=== PATIENT | male | born 1940 | race African-American/Black ===

== ENCOUNTER 2022-02-05 13:10 | Emergency (ER) | payer MEDICARE, MEDICAID ==
[~2022-02-05] VITALS: Ht 190.5 cm; Wt 82.0 kg
[~2022-02-05 13:10] MED LIST: ASCORBIC ACID 400 MG; ATOR20TA; VALS80TA2
[2022-02-05 13:17] VITALS: BP 155/50
== END 2022-02-05 14:45 | disposition left against medical advice (07) ==
LOC: ER 13:10
DX: R07.89 Other chest pain (principal); I10 Essential (primary) hypertension
CPT/HCPCS: 93005; 99283

== ENCOUNTER 2022-12-07 17:46 | Emergency (ER) | payer MEDICARE, MEDICAID ==
[~2022-12-07] VITALS: Ht 190.5 cm; Wt 82.0 kg
[2022-12-07] MEDS ORDERED: LIDOCAINE HCL 1% 20ML VIAL (Pyxis) INJ INFIL ONE (18:30)
[2022-12-07 19:04] VITALS: BP 148/84
== END 2022-12-07 19:07 | disposition home or self-care (01) ==
LOC: ER 17:46
DX: S01.112A Laceration without foreign body of left eyelid and periocular area, initial encounter (principal); W18.30XA Fall on same level, unspecified, initial encounter; Y93.89 Activity, other specified; Y92.89 Other specified places as the place of occurrence of the external cause; Y99.8 Other external cause status
CPT/HCPCS: 12011; 99282

== ENCOUNTER 2022-12-14 09:45 | Emergency (ER) | payer MEDICARE, MEDICAID ==
[~2022-12-14] VITALS: Ht 190.5 cm; Wt 81.0 kg
[2022-12-14 10:07] VITALS: BP 131/78
== END 2022-12-14 10:49 | disposition home or self-care (01) ==
LOC: ER 10:36
DX: S01.112D Laceration without foreign body of left eyelid and periocular area, subsequent encounter (principal); I10 Essential (primary) hypertension; Z48.02 Encounter for removal of sutures; X58.XXXD Exposure to other specified factors, subsequent encounter
CPT/HCPCS: 99281

== ENCOUNTER 2024-08-16 15:43 | Emergency (ER) | payer BC, MEDICAID ==
[~2024-08-16] VITALS: Ht 177.8 cm; Wt 75.0 kg
[~2024-08-16 15:43] MED LIST changes: +AMLO10TA80 PO; +ATOR40TA70 PO; +FURO40TA5 PO; +LORA10TA7 PO; +MIRA50TA PO; +PANT40TA51 PO; +TERA10CA4 PO
[2024-08-16 15:53] VITALS: O2SAT 99
[2024-08-16 16:06] VITALS: BP 149/81; PULSE 88; RESP 18; TEMP 98.4; O2SAT 96
[2024-08-16 17:02] LABS: BASOPHILS % 1.4 % (0.0-2.0); EOSINOPHILS % 9.9 % (0.0-5.0); HEMATOCRIT. 22.3 % (42.0-52.0); HEMOGLOBIN. 7.2 g/dL (14.0-18.0); LYMPHOCYTES % 10.3 % (20.0-50.0); MEAN CORPUSCULAR HEMOGLOBIN 31.7 pg (28.0-32.0); MEAN CORPUSCULAR HGB CONC 32.2 g/dL (31.0-37.0); MEAN CORPUSCULAR VOLUME 98.6 fL (80.0-94.0); MEAN PLATELET VOLUME 8.9 fl (7.4-10.4); MONOCYTES % 7.6 % (2.0-8.0); NEUTROPHILS % 70.8 % (40.0-76.0); PLATELET 134 x1000/uL (130-400); RED BLOOD CELL COUNT 2.26 mill/uL (4.7-6.1); RED CELL DISTRIBUTION WIDTH 16.6 % (11.6-14.6); WHITE BLOOD COUNT 4.6 x1000/uL (4.5-11.0)
[2024-08-16 17:07] LABS: POTASSIUM 4.5 mEq/L (3.5-5.1)
[2024-08-16 17:09] LABS: CALCIUM 8.6 mg/dL (8.7-10.4)
[2024-08-16 17:29] LABS: CREATININE 8.5 mg/dL (0.6-1.3)
[2024-08-16 17:31] LABS: TROPONIN I HIGH SENSITIVITY 106 ng/L (3.0-53)
== END 2024-08-16 18:43 | disposition left against medical advice (07) ==
LOC: ER 15:43 → EDBEDREQ 18:40 → EDBEDREQTM 18:40 → ER 18:43 → CANBEDREQ 21:14
DX: R53.1 Weakness (principal); N18.6 End stage renal disease; E78.00 Pure hypercholesterolemia, unspecified; I13.2 Hypertensive heart and chronic kidney disease with heart failure and with stage 5 chronic kidney disease, or end stage renal disease; I50.9 Heart failure, unspecified; Z79.899 Other long term (current) drug therapy; Z99.2 Dependence on renal dialysis
CPT/HCPCS: 36415; 71045; 80048; 83880; 84484; 85025; 86850; 86900; 93005; 99285

== ENCOUNTER 2024-11-19 20:00 | Inpatient (IN) | payer MEDICARE, MEDICAID ==
[~2024-11-19] VITALS: Ht 188 cm; Wt 67.6 kg
[2024-11-19 21:00] LABS: BASOPHILS % 0.5 % (0.0-2.0); EOSINOPHILS % 2.6 % (0.0-5.0); HEMATOCRIT. 22.3 % (42.0-52.0); HEMOGLOBIN. 7.2 g/dL (14.0-18.0); LYMPHOCYTES % 7.9 % (20.0-50.0); MEAN CORPUSCULAR HEMOGLOBIN 31.4 pg (28.0-32.0); MEAN CORPUSCULAR HGB CONC 32.2 g/dL (31.0-37.0); MEAN CORPUSCULAR VOLUME 97.4 fL (80.0-94.0); MEAN PLATELET VOLUME 9.2 fl (7.4-10.4); MONOCYTES % 5.9 % (2.0-8.0); NEUTROPHILS % 83.1 % (40.0-76.0); PLATELET 155 x1000/uL (130-400); RED BLOOD CELL COUNT 2.29 mill/uL (4.7-6.1); RED CELL DISTRIBUTION WIDTH 18.5 % (11.6-14.6); WHITE BLOOD COUNT 4.9 x1000/uL (4.5-11.0)
[2024-11-19 21:11] LABS: CHLORIDE 114 mEq/L (98-107); SODIUM 144 mEq/L (136-145)
[2024-11-19 21:12] LABS: CALCIUM 8.6 mg/dL (8.7-10.4); CARBON DIOXIDE 17 mEq/L (21-32)
[2024-11-19 21:15] LABS: PARTIAL THROMBOPLASTIN TIME 30.2 sec (23.4-31.0); PROTHROMBIN TIME 10.7 sec (9.6-11.0)
[2024-11-19 21:17] LABS: GLUCOSE 91 mg/dL (70-105)
[2024-11-19 21:18] LABS: TROPONIN I HIGH SENSITIVITY 47 ng/L (3.0-53)
[2024-11-19 21:19] LABS: ALANINE AMINOTRANSFERASE 17 IU/L (10-49); ALBUMIN 4.2 g/dL (3.2-4.8); ASPARTATE AMINOTRANSFERASE 21 IU/L (<34)
[2024-11-19 21:20] LABS: BILIRUBIN TOTAL 0.3 mg/dL (0.1-1.0); PROTEIN TOTAL 7.1 g/dL (6.0-8.3)
[2024-11-19 21:22] LABS: BILIRUBIN DIRECT < 0.1 mg/dL (<=3.0); ETHANOL BLOOD < 10 mg/dL (<10)
[2024-11-19 21:26] LABS: CREATININE 11.8 mg/dL (0.6-1.3); POTASSIUM 7.1 mEq/L (3.5-5.1)
[2024-11-19 21:27] LABS: UREA NITROGEN BLOOD 112 mg/dL (9-23)
[2024-11-19] MEDS ORDERED: CALCIUM GLUCONATE 1GM PREMIX 50 ML IV ONE ×2 (21:45)
[2024-11-19] MEDS: ALBUTEROL (0.083%) 2.5MG/3ML NEB HHN ONE (21:58)
[2024-11-19 22:00] VITALS: PULSE 66; RESP 18; O2SAT 97
[2024-11-19] MEDS: CALCIUM GLUCONATE 1GM PREMIX 50 ML IV NR ×2 (22:01→23:42)
[2024-11-19] MEDS: INSULIN REGULAR (HUMULIN R) 1000UNITS/10ML VIAL IV ONE (22:24)
[2024-11-19] MEDS: SODIUM BICARBONATE 8.4% 50MEQ/50ML SYR IV ONE (22:25)
[2024-11-19] MEDS: FUROSEMIDE 100MG/10ML VIAL IV STA (22:25)
[2024-11-19] MEDS: DEXTROSE 50% WATER 50ML SYRINGE IV ONE (22:25)
[2024-11-19] MEDS: SODIUM ZIRCONIUM CYCLOSILICATE 10GM/PACKET PO ONE (22:26)
[2024-11-20] VITALS (9 sets, daily range): BP systolic 114–150; BP diastolic 54–81; PULSE 62–82; RESP 10–18; TEMP 36.2–36.5; O2SAT 98–100
[2024-11-20] MEDS ORDERED: CALCIUM GLUCONATE 1GM PREMIX 50 ML IV NR (01:00)
[2024-11-20 01:56] LABS: *AMPHETAMINES SCREEN URINE NEGATIVE (NEGATIVE); *BARBITURATES SCREEN URINE NEGATIVE (NEGATIVE); *BENZODIAZEPINES SCREEN URINE NEGATIVE (NEGATIVE); *COCAINE SCREEN URINE NEGATIVE (NEGATIVE); CANNABINOID URINE SCREEN NEGATIVE (NEGATIVE); ECSTASY MDMA SCREEN URINE NEGATIVE (NEGATIVE); METHADONE URINE SCREEN NEGATIVE (NEGATIVE); OPIATES URINE SCREEN PRESUMPTIVE POSITIVE (NEGATIVE); PHENCYCLIDINE URINE SCREEN NEGATIVE (NEGATIVE)
[2024-11-20 02:26] LABS: CLARITY URINE CLEAR (CLEAR); COLOR URINE YELLOW (YELLOW); GLUCOSE URINE NEGATIVE (NEGATIVE); KETONES URINE NEGATIVE (NEGATIVE); LEUKOCYTE ESTERASE URINE NEGATIVE (NEGATIVE); NITRITE URINE NEGATIVE (NEGATIVE); OCCULT BLOOD URINE 1+ (NEGATIVE); PROTEIN URINE 3+ (NEGATIVE); SPECIFIC GRAVITY URINE 1.012 (1.005-1.030); UROBILINOGEN URINE 0.2 E.U./dL (0.2-1.0)
[2024-11-20 05:48] LABS: POTASSIUM 6.1 mEq/L (3.5-5.1)
[2024-11-20 05:49] LABS: CALCIUM 8.8 mg/dL (8.7-10.4)
[2024-11-20 06:04] LABS: CREATININE 11.3 mg/dL (0.6-1.3)
[2024-11-20 06:45] LABS: BACTERIA URINE NONE SEEN; RBC URINE 0-2 /hpf (0-2); SQUAMOUS EPITHELIAL CELL URINE NONE SEEN /lpf (RARE/1+); WBC URINE 0-2 /hpf (0-2)
[2024-11-20] MEDS: FUROSEMIDE 40MG TABLET PO SCH (08:47)
[2024-11-20] MEDS ORDERED: ACETAMINOPHEN 650MG/20.3ML UDC GT PRN (10:00)
[2024-11-20] MEDS ORDERED: MORPHINE SULFATE 2 MG/ML INJ (NOT FOR IM USE) IV PRN (10:00)
[2024-11-20] MEDS ORDERED: IPRATROPIUM/ALBUTEROL 0.5-3(2.5)MG/3ML NEB HHN PRN (10:00)
[2024-11-20] MEDS ORDERED: HYDROCODONE/ACETAMINOPHEN 5/325MG TABLET PO PRN (10:00)
[2024-11-20] MEDS ORDERED: ONDANSETRON HCL 4MG/2ML INJ IV PRN (10:00)
[2024-11-20] MEDS ORDERED: NALOXONE HCL 0.4MG/ML VIAL IV PRN (10:15)
[2024-11-20] MEDS: LISINOPRIL 20MG TABLET PO SCH (10:42)
[2024-11-20] MEDS: QUETIAPINE FUMARATE 50MG TABLET PO SCH (10:42)
[2024-11-20] MEDS: THIAMINE HCL 100MG TABLET PO SCH (10:42)
[2024-11-20] MEDS: SODIUM ZIRCONIUM CYCLOSILICATE 10GM/PACKET PO SCH (10:44)
[2024-11-20] MEDS: ENOXAPARIN 30MG/0.3ML SYR SUBCUT SCH (10:44)
[2024-11-20] MEDS ORDERED: LIDOCAINE HCL 1% 10 MG/ML 10ML VIAL ONE (11:11)
[2024-11-20 13:03] LABS: HEPATITIS B SURFACE ANTIGEN NEGATIVE (Negative)
[2024-11-20 13:24] LABS: HEPATITIS A AB IGM NEGATIVE (Negative); HEPATITIS B CORE AB IGM REACTIVE (Negative)
[2024-11-20 13:25] LABS: HEPATITIS C AB NON REACTIVE (Neg) (Negative)
[2024-11-21] VITALS (11 sets, daily range): BP systolic 96–150; BP diastolic 50–80; PULSE 68–89; RESP 7–20; TEMP 36.2–36.9; O2SAT 96–100
[2024-11-22] VITALS: BP 122/48; PULSE 76; RESP 18; TEMP 36.8; O2SAT 97
[2024-11-22 04:00] VITALS: BP 117/66; PULSE 108; RESP 20; TEMP 36.8; O2SAT 97
[2024-11-22 08:00] VITALS: BP 136/58; PULSE 86; RESP 18; TEMP 36.5; O2SAT 97
[2024-11-22 12:00] VITALS: BP 140/71; PULSE 97; RESP 19; TEMP 36.7; O2SAT 98
[2024-11-22 12:18] LABS: BASOPHILS % 0.7 % (0.0-2.0); HEMATOCRIT. 22.9 % (42.0-52.0); HEMOGLOBIN. 7.4 g/dL (14.0-18.0); LYMPHOCYTES % 10.3 % (20.0-50.0); MEAN CORPUSCULAR HEMOGLOBIN 31.3 pg (28.0-32.0); MEAN CORPUSCULAR HGB CONC 32.3 g/dL (31.0-37.0); MEAN CORPUSCULAR VOLUME 96.9 fL (80.0-94.0); MONOCYTES % 7.4 % (2.0-8.0); NEUTROPHILS % 76.6 % (40.0-76.0); PLATELET 145 x1000/uL (130-400); RED BLOOD CELL COUNT 2.36 mill/uL (4.7-6.1); RED CELL DISTRIBUTION WIDTH 18.1 % (11.6-14.6); WHITE BLOOD COUNT 3.5 x1000/uL (4.5-11.0)
[2024-11-22 12:31] LABS: CARBON DIOXIDE 20 mEq/L (21-32); CHLORIDE 113 mEq/L (98-107); SODIUM 147 mEq/L (136-145)
[2024-11-22 12:33] LABS: CALCIUM 8.1 mg/dL (8.7-10.4)
[2024-11-22 12:37] LABS: GLUCOSE 139 mg/dL (70-105)
[2024-11-22 12:49] LABS: CREATININE 11.5 mg/dL (0.6-1.3); POTASSIUM 6.3 mEq/L (3.5-5.1); UREA NITROGEN BLOOD 111 mg/dL (9-23)
[2024-11-22 12:50] LABS: PHOSPHORUS 8.5 mg/dL (2.5-4.9)
[2024-11-22 16:00] VITALS: BP 140/74; PULSE 80; RESP 18; TEMP 36.9; O2SAT 99
[2024-11-22 20:00] VITALS: BP 161/80; PULSE 66; RESP 19; TEMP 36.5; O2SAT 96
[2024-11-22] MEDS: HYDRALAZINE 20MG/ML VIAL IV PRN (21:02)
[2024-11-23] VITALS: BP 132/81; PULSE 86; RESP 19; TEMP 36.6; O2SAT 97
[2024-11-23 04:00] VITALS: BP 138/82; PULSE 89; RESP 20; TEMP 36.9; O2SAT 96
[2024-11-23 08:00] VITALS: BP 158/88; PULSE 78; RESP 18; TEMP 36.5; O2SAT 100
[2024-11-23 12:00] VITALS: BP 132/71; PULSE 81; RESP 18; TEMP 36.6; O2SAT 100
[2024-11-23 14:25] VITALS: BP 132/71; PULSE 81; TEMP 97.9; O2SAT 100
[2024-11-23 16:00] VITALS: BP 125/74; PULSE 74; RESP 18; TEMP 36.6; O2SAT 100
== END 2024-11-23 19:40 | disposition hospice, home (50) | DRG 682 ==
LOC: ER 20:00 → EDBEDREQ 21:36 → 5EST 23:24 → EDBEDREQSVC 23:28 → EDBEDREQTM 23:28 → EDBEDREQ 23:28 → 8WST 11-21 13:40
PROVIDERS: ADMIT Internal Medicine Nephrology; ATTEND Internal Medicine
DX: N17.9 Acute kidney failure, unspecified (principal); G93.41 Metabolic encephalopathy; I13.2 Hypertensive heart and chronic kidney disease with heart failure and with stage 5 chronic kidney disease, or end stage renal disease; I69.354 Hemiplegia and hemiparesis following cerebral infarction affecting left non-dominant side; E87.20 Acidosis, unspecified; E87.5 Hyperkalemia; N18.6 End stage renal disease; D63.1 Anemia in chronic kidney disease; F03.90 Unspecified dementia, unspecified severity, without behavioral disturbance, psychotic disturbance, mood disturbance, and anxiety; E78.00 Pure hypercholesterolemia, unspecified; I50.9 Heart failure, unspecified; J44.9 Chronic obstructive pulmonary disease, unspecified; Z87.891 Personal history of nicotine dependence
CPT/HCPCS: 36415; 71045; 80048; 80076; 80305; 80320; 81003; 82962; 83605; 83735; 83880; 84100; 84145; 84484; 85025; 86705; 86709; 86850; 86900; 87340; 93005; 94640; 99291; A4606; J0360; J0610; J1650; J1815; J1940; J2003; J3490; G0480